=== PATIENT | female | born 1985 | race African-American/Black ===

== ENCOUNTER 2024-10-01 10:46 | Outpatient (CLI) | payer OTHER, SELFPAY ==
--- NOTE | ~2024-10-01 | US_ITS ---
EXAMINATION: US thyroid DATE: 10/01/2024 11:04 INDICATION: Thyroid nodule. TECHNIQUE: Multiple ultrasound images of the thyroid were obtained. COMPARISON: None. FINDINGS: The right thyroid lobe measures 3.7 x 0.9 x 1.3 cm. The left thyroid lobe measures 3.8 x 0.8 x 1.2 c m. There is normal echotexture and echogenicity throughout the thyroid gland. No discrete nodules id entified. Normal vascular flow is present. IMPRESSION: 1. Normal thyroid. Reviewed, dictated and finalized at location A. [employer] IMPRESSION: 1. Normal thyroid.
== END 2024-10-01 10:47 | disposition home or self-care (01) ==
PROVIDERS: PCP Internal Medicine; Visit Provider Internal Medicine
DX: E04.1 Nontoxic single thyroid nodule (principal)
CPT/HCPCS: 76536